=== PATIENT | female | born 1985 | race Caucasian/White ===

== ENCOUNTER 2019-07-22 11:27 | Observation (INO) ==
[2019-07-22 13:41] LABS: BASO# 0.04 X1000 (0.0-0.2); BASO% 0.5 % (0.0-0.8); EOS% 1.3 % (0.0-10.0); HEMATOCRIT 23.4 % (37.0-47.0); HEMOGLOBIN 6.1 g/dL (12.0-16.0); LYMPH# 2.34 X1000 (1.2-3.4); LYMPH% 30.6 % (20.5-51.1); MCH 18.5 PG (27-31); MCHC 26.1 g/dL (33-37); MCV 71.1 FL (81-99); MONO# 0.58 X1000 (0.11-0.59); MONO% 7.6 % (1.7-9.3); NEUT# 4.58 X1000 (1.4-6.5); PLT 133 X1000 (130-400); RBC 3.29 XMIL (4.2-5.4); WBC 7.64 X1000 (4.8-10.8)
[2019-07-22 14:04] LABS: BANDS 4 % (0-1); LYMPHS 24 % (21-51); MONO 5 % (1-9); SEGS 67 % (42-75)
--- NOTE | 2019-07-22 14:47 | HISTORY AND PHYSICAL ---
CHIEF COMPLAINT: Heavy vaginal bleeding and feeling faint. HISTORY OF PRESENT ILLNESS: The patient is a 33-year-old female (G0) who has a long history of irregular bleeding and also requiring blood transfusions on occasion, last time 1 year ago. The patient reports she had a hemoglobin of 8 in April,. PAST MEDICAL HISTORY: Significant for anemia and polycystic ovarian syndrome. PAST SURGICAL HISTORY: Significant for wisdom teeth, duodenal switch surgery and surgery on one of her tear ducts. PAST OB HISTORY: G0. [employer] HISTORY: Menarche at age 12. REVIEW OF SYSTEMS: All systems reviewed and noncontributory. FAMILY HISTORY: Significant for myocardial infarction, stroke and diabetes. SOCIAL HISTORY: Tobacco use 4 cigarettes per day. Alcohol use none. MEDICATIONS: She takes vitamins as well as Prilosec 40 mg b.i.d. ALLERGIES: Penicillin, amoxicillin and Ortho Tri-Cyclen. PHYSICAL EXAMINATION: VITAL SIGNS: Height 5 feet 7 inches; weight 186 pounds; temperature 97.9; blood pressure 116/63; pulse 78; respirations 20. HEENT: Pupils equal, round and reactive to light and accommodation. Extraocular movements intact. Oropharynx clear. NECK: Supple, no thyromegaly. LUNGS: Clear to auscultation. HEART: Regular rate and rhythm. ABDOMEN: Bowel sounds positive. Soft and nontender. No masses palpated. PELVIC: External genitalia was normal in appearance. No lesions seen. Sterile speculum exam revealed vaginal mucosa pink, moist and well rugated. Cervix was identified; small amount of blood noted in the vaginal vault and at the cervical os; nulliparous in appearance. Bimanual examination did not have any abnormal findings, normal adnexa and no pain could be elicited. The uterus was mobile and also nulliparous in size. EXTREMITIES: The patient with some paleness of her extremities. No clubbing was noted. No edema was noted. NEUROLOGICAL: Cranial nerves II through XII grossly intact. Motor 5 out of 5. DTRs 2+ bilaterally. Hemoglobin obtained in the office by fingerstick was 5.2. ASSESSMENT AND PLAN: A 33-year-old female with severe anemia. The patient will be admitted for observation and transfusion of 3 units of packed red blood cells. We will recheck the level 4 hours after that and see how she responds to this. Afterward, plan to use a NuvaRing which she has used before for continuous therapy and, therefore, reduce bleeding from her uterus. cc: Mike Chacko III, MD
[2019-07-22] MEDS ORDERED: NS 500 ML ONE (14:57)
[2019-07-22] MEDS ORDERED: BENADRYL PO ONE (15:23)
[2019-07-22] MEDS ORDERED: BLISTEX MEDICATED BERRY LIP BALM TOP PRN (15:23)
[2019-07-22] MEDS: TYLENOL PO PRN ×2 (15:31→22:47)
[2019-07-22] MEDS: PRILOSEC PO SCH (22:47)
[2019-07-23] MEDS: PRILOSEC PO SCH (07:29)
[2019-07-23] MEDS: TYLENOL PO PRN (07:34)
[2019-07-23 07:54] VITALS: BP 128/69
[2019-07-23 08:49] LABS: BASO# 0.04 X1000 (0.0-0.2); BASO% 0.6 % (0.0-0.8); EOS# 0.17 X1000 (0.0-0.7); EOS% 2.4 % (0.0-10.0); HEMATOCRIT 31.4 % (37.0-47.0); HEMOGLOBIN 9.3 g/dL (12.0-16.0); IMM GRAN# 0.02 X1000 (0.0-0.04); IMM GRAN% 0.3 % (0.0-0.5); LYMPH# 2.09 X1000 (1.2-3.4); LYMPH% 29.5 % (20.5-51.1); MCH 22.4 PG (27-31); MCHC 29.6 g/dL (33-37); MCV 75.7 FL (81-99); MONO# 0.68 X1000 (0.11-0.59); MONO% 9.6 % (1.7-9.3); NEUT# 4.09 X1000 (1.4-6.5); NEUT% 57.6 % (42.2-75.2); PLT 147 X1000 (130-400); RBC 4.15 XMIL (4.2-5.4); RDW 23.1 % (11.5-14.5); WBC 7.09 X1000 (4.8-10.8)
[2019-07-24 18:36] LABS: HIV ANTIBODY SCREEN SEE COMMENTS
== END 2019-07-23 13:22 | disposition home or self-care (01) ==
LOC: DIRADM → 1N 11:27
PROVIDERS: ADMIT Obstetrics & Gynecology; ATTEND Obstetrics & Gynecology